=== PATIENT | female | born 1955 | race Caucasian/White ===

== ENCOUNTER → 2016-10-30 | Outpatient (CLI) | payer BC | END | disposition home or self-care (01) | LOC: CDC 10:30 | DX: M65.332 Trigger finger, left middle finger (principal); M67.442 Ganglion, left hand; G56.02 Carpal tunnel syndrome, left upper limb; I45.10 Unspecified right bundle-branch block; R94.31 Abnormal electrocardiogram [ECG] [EKG] | CPT/HCPCS: 93000 ==